=== PATIENT | male | born 1955 | race Caucasian/White ===

== ENCOUNTER 2025-02-12 17:47 | Outpatient (REF) | payer MEDICARE, SELFPAY ==
[2025-02-12 20:42] LABS: ALT 29 U/L (16-63); AST 20 U/L (15-37); Albumin 3.9 g/dL (3.4-5.0); Alkaline Phosphatase 79 U/L (46-116); Anion Gap 9.8 mmol/L (3-11); BUN 25 mg/dL (7-18); Bilirubin, Total 0.4 mg/dL (0.2-1.0); CO2 26.2 mmol/L (21.0-32.0); Calcium 9.2 mg/dL (8.5-10.1); Calculated LDL 116 mg/dL (<100); Chloride 106 mmol/L (98-107); Cholesterol 196 mg/dL (<200); Glucose 93 mg/dL (74-106); HDL Cholesterol 51 mg/dL (>or=40); Potassium 4.7 mmol/L (3.5-5.1); Sodium 142 mmol/L (136-145); Total Protein 6.9 g/dL (6.4-8.2); Triglyceride 145 mg/dL (<150)
== END 2025-02-12 17:48 | disposition home or self-care (01) ==
LOC: NCHCN 17:47
PROVIDERS: Visit Provider Student in an Organized Health Care Education/Training Program
DX: E78.5 Hyperlipidemia, unspecified (principal); Z13.1 Encounter for screening for diabetes mellitus
CPT/HCPCS: 80053; 80061

== ENCOUNTER 2025-06-15 15:37 | Outpatient (REF) | payer MEDICARE, SELFPAY ==
[2025-06-15 16:23] LABS: WBC 0-2 HPF (0-5)
== END 2025-06-15 15:38 | disposition home or self-care (01) ==
LOC: LBN 15:37
PROVIDERS: Visit Provider Physician Assistant Medical
DX: R30.0 Dysuria (principal); R78.81 Bacteremia; B95.7 Other staphylococcus as the cause of diseases classified elsewhere
CPT/HCPCS: 87077; 81015; 87086; 87186